=== PATIENT | female | born 1995 | race Caucasian/White ===

== ENCOUNTER 2016-07-27 14:45 | Inpatient (IN) | payer OTHER, MEDICAID ==
[~2016-07-27 14:45] MED LIST: CALC600T11 PO; PRENAT PO
[2016-07-27] MEDS ORDERED: AMPICILLIN 2 GM/NS (PMX) 100 ML ONE (15:08)
--- NOTE | 2016-07-27 15:14 | TRIAGE ---
OB Triage Datetime Report Generated by CPN: 07/27/2016 15:14 Datetime: 07/27/2016 15:12 Time of Arrival: 07/27/2016 14:40 EGA: 38.6 Arrived By: Ambulatory Arrived From: Home Chief Complaint: C/O UC Movement: Present Contractions: Regular Rupture of Membranes: Denies Vaginal Discharge: Denies Recent Sexual Intercouse: Denies Abdominal Trauma: Not Applicable Patient Complaints: Contractions; Cramping; Back Pain Time Provider Notified: 07/27/2016 14:55 Provider Notified: DIANA Initial Plan: EFM Datetime: 07/27/2016 14:53 Vaginal Exam Dilatation (cms): 8.0 Effacement (%): 100 Station: -2 Exam By: [facility] Membrane Status: Ruptured Membranes Rupture Method: Spontaneous Amniotic Fluid Color: Clear Amniotic Fluid Amount: Large Cervix, Consistency: Soft Cervix, Position: Anterior Datetime: 04/07/2016 16:46 Fall Risk Assessment Fall Score: 0 Fall Risk Score Definition: No Risk: No action required Datetime: 04/07/2016 16:40 EGA: 23.0
[2016-07-27] MEDS ORDERED: OXYTOCIN 30 UNITS/LR 500 ML IV SCH ×2 (15:30)
[2016-07-27] MEDS ORDERED: MINERAL OIL LIGHT 10 ML VIAL TOP PRN (15:30)
[2016-07-27] MEDS ORDERED: CARBOPROST 250 MCG INJ IM PRN ×2 (15:30→22:00)
[2016-07-27] MEDS ORDERED: AMPICILLIN 2 GM/NS (PMX) 100 ML IV ONE (15:30)
[2016-07-27] MEDS ORDERED: IBUPROFEN 600 MG TAB PO PRN (15:30)
[2016-07-27] MEDS ORDERED: ACETAMINOPHEN/CODEINE #3 TAB PO PRN ×3 (15:30→22:00)
[2016-07-27] MEDS ORDERED: MISOPROSTOL 200 MCG TAB PR PRN ×2 (15:30→22:00)
[2016-07-27] MEDS ORDERED: METHYLERGONOVINE 0.2 MG INJ IM PRN ×2 (15:30→22:00)
[2016-07-27] MEDS ORDERED: BUTORPHANOL 2 MG INJ IV PRN (15:30)
[2016-07-27] MEDS ORDERED: OXYTOCIN 30 UNITS/LR 500 ML IV PRN ×2 (15:30→22:00)
[2016-07-27] MEDS ORDERED: LIDOCAINE 1% (MPF) 30 ML INJ INJ PRN (15:30)
[2016-07-27] MEDS: LACTATED RINGER'S 1,000 ML IV SCH ×2 (15:31→16:40)
[2016-07-27 15:34] LABS: BASOPHILS % 0.3 % (0.0-2.0); EOSINOPHILS % 0.3 % (0.0-7.0); HEMATOCRIT 35.5 % (37.0-47.0); HEMOGLOBIN 12.1 g/dl (12.0-16.0); MEAN CORPUSCULAR HEMOGLOBIN 31.2 pg (29.0-33.0); MEAN CORPUSCULAR HGB CONC 34.1 g/dl (32.0-37.0); MEAN CORPUSCULAR VOLUME 91.5 fl (72.0-104.0); MEAN PLATELET VOLUME 9.4 fl (7.4-10.4); MONOCYTE # 0.8 10^3/ul (0.3-0.9); MONOCYTES % 6.5 % (0.0-13.0); NEUTROPHIL # 9.1 10^3/ul (1.6-7.5); NEUTROPHILS % 75.9 % (30.0-74.0); PLATELET COUNT 211 10^3/UL (140-440); RED BLOOD COUNT 3.88 10^6/ul (4.20-5.40); RED CELL DISTRIBUTION WIDTH 13.2 % (11.5-14.5)
[2016-07-27 15:41] LABS: INR 0.89; PT RATIO 0.9
[2016-07-27 15:42] LABS: CONDITION 1; PARTIAL THROMBOPLASTIN TIME 28.1 Sec (25.0-35.0)
[2016-07-27] MEDS ORDERED: LACTATED RINGER'S 1,000 ML IV PRN (16:00)
[2016-07-27] MEDS ORDERED: FENTAnyl 2MCG/ML-ROPIV 0.2% 100 ML ONE (16:22)
[2016-07-27] MEDS ORDERED: FENTAnyl 50 MCG/ML VIAL ONE (16:45)
[2016-07-27] MEDS ORDERED: NALOXONE (0.4 MG/ML) INJ IV PRN (17:00)
[2016-07-27] MEDS ORDERED: FENTAnyl 2MCG/ML-ROPIV 0.2% 100 ML BAG EPI SCH (17:00)
[2016-07-27] MEDS ORDERED: ONDANSETRON 4 MG INJ IV PRN (17:00)
[2016-07-27] MEDS ORDERED: DIPHENHYDRAMINE 50 MG INJ IV PRN (17:00)
[2016-07-27] MEDS ORDERED: AMPICILLIN 1 GM/NS (PMX) 50 ML IV SCH (19:30)
--- NOTE | 2016-07-27 19:36 | HP ---
Date/Time of Note Date/Time of Note DATE: 07/27/16 TIME: 19:31 OB - History Hx of Present Free Text/Dictation 21 y/o female admitted in labor at term Chief Complaint: labor pains Last Menstrual Period: October 08, 2015 Estimated Due Date: Aug 04, 2016 : 1 Para: 0 Care: Good Care Ultrasounds: Normal mid trimester US Obstetrical Complications: None Medical Complications: None Past Family/Social History * Past Medical, Surgical, Family and Obstetric Histories reviewed from chart. Blood Type: O+ Rubella: immune RPR/VDRL: Negative GBS Status: Positive HBsAG: Negative OB Admission Exam Physical Exam HEENT: WNL Heart: Rhythm Normal Lungs: Clear, Equal Abdomen: WNL Extremities: Normal Reflexes: Normal Cervical Dilatation: 8cm Effacement: 100% Station: +1 Membranes: Intact Heart Rate: 130's Accelerations: Accelerations Present Decelerations: Early Decelerations Varibility: Moderate Contractions on Admission: None Date/Time Contractions Began: 07/27/2016 00.00 Frequency of Contractions: q5 Duration: >60 seconds Intensity: Mild Last 72 hours Lab Results CBC & BMP 07/27/16 15:15 OB Assessment/Plan Reason for admission: active labor Other Assessment: term gestation Other plan: proceed with labor DIANA SEGURA MD Jul 27, 2016 19:36
--- NOTE | 2016-07-27 19:42 | LDN ---
Date/Time of Note Date/Time of Note DATE: 07/27/16 TIME: 19:36 Delivery Summary of a viable over midline episiotomy Placenta Delivered: Spontaneously Meconium: none Perineum intact?: No Perineal laceration repair: midline epsiotomy was repaired in layers with 2 0 Vicryl and 2 0 Chromic Anesthesia type: Epidural Estimated blood loss: 300 Sponge & Needle done & correct: Yes All needle counts correct: Yes Any foreign bodies felt in the: No Problems: Delivery Information Sex Sex: male Apgars 1 Minute: 9 5 Minute: 9 Suctioning Nose & mouth suctioned at jacobo: Yes Delee suction performed: No Umbilical Cord Umbilical cord with: 3 Vessels Cord presentations: nuchal cord Nuchal cord present X: 1 Cord Blood was obtained: Yes Mother & Baby Disposition Disposition Mom & Baby to Maternity; Good: Yes (mother and baby were recovered in good condition ) Mom transferred to: Other (maternity ) Baby to NICU: No DIANA SEGURA MD Jul 27, 2016 19:41
[2016-07-27] MEDS: LACTATED RINGER'S 1,000 ML IV* SCH (21:44)
[2016-07-27 22:00] VITALS: BP 114/67
[2016-07-27] MEDS ORDERED: WITCH HAZEL/GLYCERIN PAD PR PRN (22:00)
[2016-07-27] MEDS ORDERED: DIBUCAINE 1% 30 GM OINT PR PRN (22:00)
[2016-07-27] MEDS ORDERED: BENZOCAINE 20% 56 ML SPRAY TOP PRN (22:00)
[2016-07-27] MEDS ORDERED: LANOLIN 7 GM TUBE TOP PRN (22:00)
[2016-07-27] MEDS ORDERED: ZOLPIDEM 5 MG TAB PO PRN (22:00)
[2016-07-27 23:00] VITALS: BP 132/67; PULSE 82; RESP 18
[2016-07-27] MEDS: IBUPROFEN 600 MG TAB PO SCH (23:33)
[2016-07-27] MEDS: CEPHALEXIN 500 MG CAP PO SCH (23:33)
[2016-07-28 04:00] VITALS: BP 112/61; PULSE 82; RESP 18
[2016-07-28] MEDS: CEPHALEXIN 500 MG CAP PO SCH ×3 (06:35→18:53)
[2016-07-28] MEDS: IBUPROFEN 600 MG TAB PO SCH ×3 (06:35→18:52)
[2016-07-28 08:18] LABS: BASOPHILS % 0.3 % (0.0-2.0); EOSINOPHILS # 0.1 10^3/ul (0.0-0.5); EOSINOPHILS % 0.4 % (0.0-7.0); HEMOGLOBIN 9.8 g/dl (12.0-16.0); LYMPHOCYTES # 1.6 10^3/ul (0.8-2.9); LYMPHOCYTES % 12.2 % (18.0-55.0); MEAN CORPUSCULAR HEMOGLOBIN 31.4 pg (29.0-33.0); MEAN CORPUSCULAR HGB CONC 33.8 g/dl (32.0-37.0); MEAN CORPUSCULAR VOLUME 92.9 fl (72.0-104.0); MEAN PLATELET VOLUME 12.2 fl (7.4-10.4); MONOCYTE # 0.9 10^3/ul (0.3-0.9); MONOCYTES % 6.5 % (0.0-13.0); NEUTROPHIL # 10.5 10^3/ul (1.6-7.5); NEUTROPHILS % 80.1 % (30.0-74.0); PLATELET COUNT 155 10^3/UL (140-415); RED BLOOD COUNT 3.12 10^6/ul (4.20-5.40); RED CELL DISTRIBUTION WIDTH 13.2 % (11.5-14.5); WHITE BLOOD COUNT 13.2 10^3/ul (4.8-10.8)
[2016-07-28 09:00] VITALS: BP 97/63; PULSE 94; RESP 18
[2016-07-28] MEDS: SENNA/DOCUSATE NA (8.6MG/50MG) TAB PO SCH ×2 (09:47→21:29)
[2016-07-28] MEDS: MAGNESIUM HYDROXIDE 30ML CUP PO SCH ×2 (09:47→21:29)
[2016-07-28 12:13] VITALS: BP 115/69; PULSE 94; RESP 18
[2016-07-28] MEDS: LACTATED RINGER'S 1,000 ML IV* SCH (12:14)
--- NOTE | 2016-07-28 14:32 | DS ---
Date/Time of Note Date/Time of Note home next day DATE: 07/28/16 TIME: 14:31 Obstetrical Discharge Record Final Diagnosis Final Diagnosis: Term delivered Other Final Diagnosis S/P vaginal delivery Vaginal Delivery Obstetrical Delivery: Spontaneous, Episiotomy, Repaired Condition on Discharge Physical Assessment Last Vitals: see nurses notes Voiding: Yes Bowel Movement: Yes Breast: Soft, non-tender, Filling Fundus: Firm Abdomen and Incision: soft bs + Episiotomy: healing Calf Tenderness: No Patient Condition: Good DIANA SEGURA MD Jul 28, 2016 14:32
--- NOTE | 2016-07-28 14:33 | PD.PPDC ---
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
[2016-07-28] MEDS ORDERED: IBUP-1542 PO (14:34)
[2016-07-28 16:00] VITALS: BP 118/67; PULSE 80; RESP 19
[2016-07-28 19:35] VITALS: BP 123/62; PULSE 75; RESP 18
[2016-07-29] MEDS: IBUPROFEN 600 MG TAB PO SCH ×4 (00:01→18:07)
[2016-07-29] MEDS: CEPHALEXIN 500 MG CAP PO SCH ×4 (00:01→18:07)
[2016-07-29 04:30] VITALS: BP 108/56; PULSE 66; RESP 18
[2016-07-29 07:41] LABS: ADD SCAN DIFF NO
[2016-07-29 07:47] LABS: BASOPHIL # 0.1 10^3/ul (0.0-0.1); BASOPHILS % 0.5 % (0.0-2.0); EOSINOPHILS # 0.2 10^3/ul (0.0-0.5); EOSINOPHILS % 1.4 % (0.0-7.0); HEMATOCRIT 28.5 % (37.0-47.0); HEMOGLOBIN 9.4 g/dl (12.0-16.0); LYMPHOCYTES # 2.4 10^3/ul (0.8-2.9); LYMPHOCYTES % 20.6 % (18.0-55.0); MEAN CORPUSCULAR VOLUME 94.1 fl (72.0-104.0); MEAN PLATELET VOLUME 12.1 fl (7.4-10.4); MONOCYTE # 0.9 10^3/ul (0.3-0.9); MONOCYTES % 8.1 % (0.0-13.0); NEUTROPHIL # 7.9 10^3/ul (1.6-7.5); NEUTROPHILS % 68.9 % (30.0-74.0); PLATELET COUNT 155 10^3/UL (140-415); RED BLOOD COUNT 3.03 10^6/ul (4.20-5.40); RED CELL DISTRIBUTION WIDTH 13.2 % (11.5-14.5); WHITE BLOOD COUNT 11.5 10^3/ul (4.8-10.8)
[2016-07-29 08:45] VITALS: BP 118/74; PULSE 70; RESP 16
[2016-07-29] MEDS ORDERED: MEASLES,MUMPS,RUBELLA VACCINE INJ SC* ONE (09:00)
[2016-07-29] MEDS ORDERED: VARICELLA VACCINE LIVE/PF 1,350 UNIT/0.5 ML ML SC* ONE (09:00)
[2016-07-29] MEDS ORDERED: DIPHTH/TET/ACEL PERTUSS (ADULT) 0.5 ML VIAL IM* ONE (09:00)
[2016-07-29] MEDS: SENNA/DOCUSATE NA (8.6MG/50MG) TAB PO SCH (09:33)
[2016-07-29] MEDS: MAGNESIUM HYDROXIDE 30ML CUP PO SCH (09:33)
[2016-07-29 16:00] VITALS: BP 122/80; PULSE 88; RESP 16
== END 2016-07-29 18:30 | disposition home or self-care (01) | DRG 775 ==
LOC: OBT 14:45 → L-D 14:46 → OBT 14:58 → L-D 14:59 → PP1 22:00
PROVIDERS: ADMIT Obstetrics & Gynecology; ATTEND Obstetrics & Gynecology
PROC: 10E0XZZ Delivery of Products of Conception, External Approach (ICD-10-PCS; principal; 2016-07-27)
PROC: 0W8NXZZ Division of Female Perineum, External Approach (ICD-10-PCS; 2016-07-27)
DX: O80 Encounter for full-term uncomplicated delivery (principal); Z37.0 Single live birth; Z3A.38 38 weeks gestation of pregnancy
CPT/HCPCS: 62319; 85025; 85610; 85730; 86592; 86900; 86901; 87340; 90715; 90716; G0463; J0290; J2590; J3010; J7120

== ENCOUNTER 2018-08-11 08:57 | Inpatient (IN) | payer MEDICAID ==
[~2018-08-11] VITALS: Ht 162.6 cm; Wt 59.4 kg
[~2018-08-11 08:57] MED LIST changes: -CALC600T11 PO; +CALC600T24 PO; +IBUP-1542 PO
[2018-08-11] MEDS ORDERED: CARBOPROST 250 MCG INJ IM PRN (09:30)
[2018-08-11] MEDS ORDERED: BUTORPHANOL 2 MG INJ IV PRN (09:30)
[2018-08-11] MEDS ORDERED: OXYTOCIN 30 UNITS/LR 500 ML IV PRN (09:30)
[2018-08-11] MEDS ORDERED: LIDOCAINE 1% (MPF) 30 ML INJ INJ PRN (09:30)
[2018-08-11] MEDS ORDERED: OXYTOCIN 30 UNITS/LR 500 ML IV SCH ×2 (09:30)
[2018-08-11] MEDS ORDERED: MISOPROSTOL 200 MCG TAB PR PRN (09:30)
[2018-08-11] MEDS ORDERED: IBUPROFEN 600 MG TAB PO PRN (09:30)
[2018-08-11] MEDS ORDERED: METHYLERGONOVINE 0.2 MG INJ IM PRN (09:30)
[2018-08-11 09:33] VITALS: Ht 162.6 cm; Wt 59.4 kg
[2018-08-11 09:37] VITALS: BP 110/65; PULSE 110; RESP 19
[2018-08-11] MEDS ORDERED: LEVO25TA6 PO (09:43)
[2018-08-11] MEDS: LACTATED RINGER'S 1,000 ML IV SCH ×2 (09:44→18:28)
[2018-08-11] MEDS ORDERED: AMPICILLIN 2 GM/NS (PMX) 100 ML ONE (09:47)
[2018-08-11] MEDS ORDERED: AMPICILLIN 2 GM/NS (PMX) 100 ML IVPB ONE (10:00)
[2018-08-11] MEDS: MISOPROSTOL 50 MCG CAPSULE PO SCH ×4 (11:19→21:02)
[2018-08-11] MEDS: AMPICILLIN 1 GM/NS (PMX) 50 ML IVPB SCH ×3 (13:52→20:59)
--- NOTE | 2018-08-11 16:50 | HP ---
Date/Time of Note Date/Time of Note DATE: 08/11/18 TIME: 16:47 OB - History Hx of Present Free Text/Dictation 24-year-old female 2 para 1 at 38 weeks gestation admitted for elective induction per perinatologist and because of symmetrical IUGR Last Menstrual Period: Nov 16, 2017 Estimated Due Date: Aug 23, 2018 : 2 Para: 1 Care: Good Care Ultrasounds: Normal mid trimester US Obstetrical Complications: Other (Symmetrical IUGR) Medical Complications: None Past Family/Social History * Past Medical, Surgical, Family and Obstetric Histories reviewed from chart. Blood Type: O+ Rubella: immune RPR/VDRL: Negative GBS Status: Positive HBsAG: Negative OB Admission Exam Vital Signs Vital Signs Vital Signs Date Temp Pulse Resp B/P (MAP) Pulse Ox O2 O2 Flow FiO2 Time Delivery Rate 08/11/18 98.7 110 19 110/65 Room Air 09:37 (80) Physical Exam HEENT: WNL Heart: Rhythm Normal Lungs: Clear, Equal Abdomen: WNL Extremities: Normal Reflexes: Normal Cervical Dilatation: None Effacement: 0% Station: -3 Membranes: Intact Heart Rate: 140's Accelerations: Accelerations Present Decelerations: No Decelerations Varibility: Marked Contractions on Admission: None Last 72 hours Lab Results CBC & BMP 08/11/18 09:30 OB Assessment/Plan Reason for admission: induction of labor Other Assessment: 38+ weeks gestation Symmetrical IUGR Other plan: Proceed with Cytotec DIANA Herrera MD Aug 11, 2018 16:50
[2018-08-12] MEDS: AMPICILLIN 1 GM/NS (PMX) 50 ML IVPB SCH ×5 (01:01→17:00)
[2018-08-12] MEDS: MISOPROSTOL 50 MCG CAPSULE PO SCH ×5 (01:03→17:00)
[2018-08-12] MEDS: LACTATED RINGER'S 1,000 ML IV SCH ×3 (04:08→17:21)
[2018-08-12] MEDS ORDERED: LEVOTHYROXINE 25 MCG TAB PO ONE (06:00)
--- NOTE | 2018-08-12 14:26 | PREAC ---
Date/Time of Note Date/Time of Note DATE: 08/12/18 TIME: 14:25 Anesthesia Eval and Record Evaluation Time Pre-Procedure Interview DATE: 08/12/18 TIME: 14:25 Age 23 Sex female NPO: 8 hrs Preoperative diagnosis labor pain Planned procedure epidural Past Medical History Past Medical History: None Surgery & Anesthesia Issues No known issue Meds Anticoagulation: No Beta Dixon within 24 hr: No Reason Beta Dixon not given: Pt. not on B-Dixon Active Scripts Ibuprofen* (Ibuprofen*) 600 Mg Tablet, 600 MG PO Q6, #20 TAB 0 Refills Prov:DIANA SEGURA MD 07/28/16 Reported Medications Levothyroxine Sodium* (Levothyroxine Sodium*) 25 Mcg Tablet, 25 MCG PO BEFORE BREAKFAST, #30 TAB 08/11/18 Calcium Carbonate* (Calcium Carbonate*) 600 MG Ca Tab, 600 MG PO DAILY, TAB 04/07/16 Multivit/Min/Fol Ac/Iron/Pren* ( S*) 1 Tab Tab, 1 TAB PO DAILY, TAB 04/07/16 Current Medications Lactated Ringer's 1,000 ml @ 125 mls/hr Q8H IV Last administered on 08/12/18at 13:56; Admin Dose 125 MLS/HR; Start 08/11/18 at 09:21 Butorphanol Tartrate (Stadol) 2 mg Q2H PRN IV .PAIN; Start 08/11/18 at 09:30 Lidocaine (Xylocaine 1% (Mpf)) 30 ml ONCE PRN INJ .EPISIOTOMY; Start 08/11/18 at 09:30 Oxytocin/Lactated Ringer's 500 ml @ 500 mls/hr ONCE POST IV ; Start 08/11 at 09:30 Oxytocin/Lactated Ringer's 500 ml @ 125 mls/hr POST IV ; Start 08/11/18 at 09:30 Ibuprofen (Motrin) 600 mg ONCE PRN PO .PAIN 1-5; Start 08/11/18 at 09:30 Oxytocin/Lactated Ringer's 500 ml @ 0 mls/hr ONCE PRN IV .VAGINAL BLEEDING; Start 08/11/18 at 09:30 Methylergonovine Maleate (Methergine) 0.2 mg ONCE PRN IM .VAGINAL BLEEDING; Start 08/11/18 at 09:30 Carboprost Tromethamine (Hemabate) 250 mcg ONCE PRN IM .VAGINAL BLEEDING; Start 08/11/18 at 09:30 Misoprostol (Cytotec) 1,000 mcg ONCE PRN OH .VAGINAL BLEEDING; Start 08/11/18 at 09:30 Ampicillin 50 ml @ 100 mls/hr Q4 IVPB Last administered on 08/12/18at 10:11; Admin Dose 100 MLS/HR; Start 08/11/18 at 13:00 Misoprostol (Cytotec 50 Mcg Capsule) 50 mcg Q4 PO Last administered on 08/12/18at 10:07; Admin Dose 50 MCG; Start 08/11/18 at 11:00 Meds reviewed: Yes Allergies Coded Allergies: No Known Allergy (Unverified , 08/11/18) Allergies Reviewed: Yes Labs/Studies Labs Reviewed: Reviewed by anesthesiologist Result Diagram: 08/11/18929 test: Positive Studies: ECG (n/a), CXR (n/a) Pre-procedure Exam Last vitals Vital Signs Date Temp Pulse Resp B/P (MAP) Pulse Ox O2 O2 Flow FiO2 Time Delivery Rate 08/11/18 98.7 110 19 110/65 Room Air 09:37 (80) Airway: Adequate mouth opening Mallampati: Mallampati I Teeth: Normal Lung: Normal Heart: Normal ASA Physical Status ASA physical status: 2 Emergency: None Planned Anesthetic Neuraxial: Epidural Planned Pain Management Epidural Pre-operative Attestations Prior to commencing anesthesia and surgery, the patient was re-evaluated, there was verification of: *The patient's identity *The results of appropriate recent lab work and preoperative vital signs *The above evaluation not changing prior to induction *Anesthetic plan, risk benefits, alternative and complications discussed with patient/family; questions answered; patient/family understands, accepts and wishes to proceed. ANDREZ BURGER MD Aug 12, 2018 14:26
[2018-08-12] MEDS ORDERED: FENTAnyl 2MCG/ML-ROPIV 0.2% 100 ML ONE (14:37)
--- NOTE | 2018-08-12 14:49 | PAC ---
Date/Time of Note Date/Time of Note DATE: 08/12/18 TIME: 14:47 Post-Anesthesia Notes Post-Anesthesia Note Last documented vital signs Vital Signs Date Temp Pulse Resp B/P (MAP) Pulse Ox O2 O2 Flow FiO2 Time Delivery Rate 08/11/18 98.7 110 19 110/65 Room Air 09:37 (80) 14:48 BP 106/59, HR 90, RR 19, Sat 98%, temp 98.4 Activity: WNL Respiratory function: WNL Cardiovascular function: WNL Mental status: Baseline Pain reasonably controlled: Yes Hydration appropriate: Yes Nausea/Vomiting absent: No ANDREZ BURGER MD Aug 12, 2018 14:49
[2018-08-12] MEDS ORDERED: ROPIVACAINE 0.2% 100ML BAG EPI SCH (15:00)
[2018-08-12] MEDS ORDERED: NALOXONE (0.4 MG/ML) INJ IV PRN (15:00)
[2018-08-12] MEDS ORDERED: FENTAnyl 2MCG/ML-ROPIV 0.2% 100 ML BAG EPI SCH (15:00)
--- NOTE | 2018-08-12 15:46 | PN ---
Date/Time of Note Date/Time of Note DATE: 08/12/18 TIME: 15:44 OB Subjective Subjective Subjective Patient has epidural and feels comfortable OB Objective Objective Objective Vital signs as well as general physical exam is unchanged Cervix is 80 % in 2 cm at -2 station OB Assessment/Plan Other Assessment: 38+ weeks gestation for induction of labor Status post spontaneous rupture of membrane Other plan: Patient has adequate uterine contractions we will follow routine labor DIANA SEGURA MD Aug 12, 2018 15:46
[2018-08-12] MEDS ORDERED: OXYTOCIN 30 UNITS/LR 500 ML IV SCH (16:30)
[2018-08-12] MEDS ORDERED: KETOROLAC 30 MG INJ IV STA (17:53)
--- NOTE | 2018-08-12 17:53 | LDN ---
Date/Time of Note Date/Time of Note DATE: 08/12/18 TIME: 17:50 Delivery Summary Normal spontaneous vaginal delivery of viable infant over intact perineum Weeks of Gestation 38 weeks plus Placenta Delivered: Spontaneously, Intact & Complete Meconium: none Episiotomy: No Perineal laceration: 2 Laceration repair: Second-degree perineal laceration was closed in layers with 2-0 Vicryl on a CT1 needle in different layers and 2-0 chromic on small half needle superficially Anesthesia type: Epidural Estimated blood loss: 300 Sponge & Needle done & correct: Yes All needle counts correct: Yes Any foreign bodies felt in the: No Delivery Information Sex Infant Sex: female Apgars 1 Minute: 9 5 Minute: 9 Suctioning Nose & mouth suctioned at jacobo: Yes Delee suction performed: No Umbilical Cord Umbilical cord with: 3 Vessels Cord presentations: no nuchal cord Cord Blood was obtained: Yes Mother & Baby Disposition Disposition Mom & Baby to Maternity; Good: Yes (Mother and baby were recovered in good condition) Mom transferred to: Other (Maternity) Baby to NICU: No DIANA SEGURA MD Aug 12, 2018 17:53
[2018-08-12 20:05] VITALS: BP 98/62; PULSE 74; RESP 18
[2018-08-12] MEDS ORDERED: OXYTOCIN 30 UNITS/LR 500 ML IV PRN (20:30)
[2018-08-12] MEDS ORDERED: LANOLIN HPA 1 PKT TOP PRN (20:30)
[2018-08-12] MEDS ORDERED: DIBUCAINE 1% 30 GM OINT TOP PRN (20:30)
[2018-08-12] MEDS ORDERED: WITCH HAZEL/GLYCERIN PAD PR PRN (20:30)
[2018-08-12] MEDS ORDERED: MISOPROSTOL 200 MCG TAB PR PRN (20:30)
[2018-08-12] MEDS ORDERED: HYDROCODONE/APAP (5/325) TAB PO PRN ×2 (20:30)
[2018-08-12] MEDS ORDERED: CARBOPROST 250 MCG INJ IM PRN (20:30)
[2018-08-12] MEDS ORDERED: ZOLPIDEM 5 MG TAB PO PRN (20:30)
[2018-08-12] MEDS ORDERED: METHYLERGONOVINE 0.2 MG INJ IM PRN (20:30)
[2018-08-12] MEDS ORDERED: BENZOCAINE 20% 56 ML SPRAY TOP PRN (20:30)
[2018-08-12 20:40] VITALS: BP 107/63; PULSE 72; RESP 18
[2018-08-12] MEDS: SENNA/DOCUSATE NA (8.6MG/50MG) TAB PO SCH (21:43)
[2018-08-12] MEDS: MAGNESIUM HYDROXIDE 30ML CUP PO SCH (21:43)
[2018-08-12] MEDS: LACTATED RINGER'S 1,000 ML IV* SCH (22:35)
[2018-08-13] MEDS: CEPHALEXIN 500 MG CAP PO SCH ×5 (00:03→23:44)
[2018-08-13] MEDS: IBUPROFEN 600 MG TAB PO SCH ×5 (00:04→23:44)
[2018-08-13 00:10] VITALS: BP 100/68; PULSE 66; RESP 18
[2018-08-13 04:10] VITALS: BP 114/72; PULSE 72
[2018-08-13] MEDS: LACTATED RINGER'S 1,000 ML IV* SCH ×3 (04:27→20:27)
[2018-08-13] MEDS: LEVOTHYROXINE 25 MCG TAB PO SCH (06:35)
[2018-08-13 08:00] VITALS: BP 118/68; PULSE 78; RESP 18
[2018-08-13] MEDS: MAGNESIUM HYDROXIDE 30ML CUP PO SCH ×2 (09:10→20:55)
[2018-08-13] MEDS: SENNA/DOCUSATE NA (8.6MG/50MG) TAB PO SCH ×2 (09:10→20:55)
--- NOTE | 2018-08-13 15:21 | DS ---
Date/Time of Note Date/Time of Note Home today or next day DATE: 08/13/18 TIME: 15:19 Obstetrical Discharge Record Final Diagnosis Final Diagnosis: Term delivered Other Final Diagnosis Status post vaginal delivery Vaginal Delivery Obstetrical Delivery: Spontaneous, Laceration, Repaired Complications Other (Growth retarded infant) Augmentation: Yes Induction: Yes Condition on Discharge Physical Assessment Last Vitals: See nurse's notes Voiding: Yes Bowel Movement: Yes Breast: Soft, non-tender, Filling Fundus: Firm Abdomen and Incision: Abdomen is soft with present bowel sounds Fundus is firm Episiotomy: Perineum is healing well and appears clean Calf Tenderness: No Patient Condition: Good DIANA SEGURA MD Aug 13, 2018 15:21
--- NOTE | 2018-08-13 15:22 | PD.PPDC ---
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 Physician Information 23-year-old female had vaginal delivery Diagnosis [id number] Final Diagnosis: [id number] Status post vaginal delivery Condition [id number] Patient Condition: [id number] Good Diet [id number] Diet: Arrev2p Resume Regular Diet Activity/Restrictions [id number] Activity: [id number] Normal Activity May Shower [id number] Restrictions: [id number] Nothing in the Vagina [id number] Return to Work or School: [id number] Oct 01, 2018 Follow-up Follow-up with Physician: 2, 4, Week/Weeks Return to clinic for [id number] OB Instructions: [id number] Breast Tenderness Depression Comment: Pelvic rest for 6 weeks DIANA SEGURA MD Aug 13, 2018 15:22
[2018-08-13] MEDS ORDERED: IBUP-1542 PO (15:23)
[2018-08-13 16:00] VITALS: BP 112/64; PULSE 74; RESP 18
[2018-08-13 19:40] VITALS: BP 108/62; PULSE 75; RESP 18
[2018-08-14 03:45] VITALS: BP 85/44; PULSE 55; RESP 18
[2018-08-14] MEDS: LACTATED RINGER'S 1,000 ML IV* SCH (04:27)
[2018-08-14] MEDS: IBUPROFEN 600 MG TAB PO SCH ×2 (05:48→12:41)
[2018-08-14] MEDS: CEPHALEXIN 500 MG CAP PO SCH ×2 (05:48→12:41)
[2018-08-14] MEDS: LEVOTHYROXINE 25 MCG TAB PO SCH (06:25)
[2018-08-14 08:30] VITALS: BP 98/77; PULSE 80; RESP 16
[2018-08-14] MEDS ORDERED: DIPHTH/TET/ACEL PERTUSS (ADULT) 0.5 ML VIAL IM* ONE (09:00)
[2018-08-14] MEDS ORDERED: VARICELLA VACCINE LIVE/PF 1,350 UNIT/0.5 ML ML SC* ONE (09:00)
[2018-08-14] MEDS ORDERED: MEASLES,MUMPS,RUBELLA VACCINE INJ SC* ONE (09:00)
[2018-08-14] MEDS: SENNA/DOCUSATE NA (8.6MG/50MG) TAB PO SCH (09:04)
[2018-08-14] MEDS: MAGNESIUM HYDROXIDE 30ML CUP PO SCH (09:04)
[2018-08-14 15:46] VITALS: BP 103/60; PULSE 81; RESP 14
== END 2018-08-14 17:15 | disposition home or self-care (01) | DRG 807 ==
LOC: L-D 08:57 → PP1 08-12 20:15
PROVIDERS: ADMIT Obstetrics & Gynecology; ATTEND Obstetrics & Gynecology
PROC: 10E0XZZ Delivery of Products of Conception, External Approach (ICD-10-PCS; principal; 2018-08-12)
PROC: 0KQM0ZZ Repair Perineum Muscle, Open Approach (ICD-10-PCS; 2018-08-12)
DX: O36.5930 Maternal care for other known or suspected poor fetal growth, third trimester, not applicable or unspecified (principal); Z37.0 Single live birth; O99.824 Streptococcus B carrier state complicating childbirth; O70.1 Second degree perineal laceration during delivery; Z3A.38 38 weeks gestation of pregnancy
CPT/HCPCS: 62319; 76815; 76818; 85025; 85610; 85730; 86592; 86850; 86900; 86901; 87340; 90716; 99464; J0290; J2590; J3010; J7120